=== PATIENT | male | born 1995 | race African-American/Black ===

== ENCOUNTER → 2021-01-12 | Outpatient (REF) ==
--- NOTE | 2021-01-12 09:32 | REPPI ---
INDICATION: DISABILITY DIAGNOSIS DETERMINATION COMPARISON: None. TECHNIQUE: AP, lateral, bilateral oblique views left hand. FINDINGS: Subtle irregularity at the 5th proximal interphalangeal joint region cannot be excluded and may represent old injury. The examination is otherwise normal and there is no evidence for acute fracture or dislocation. No significant degenerative changes. IMPRESSION: As above. No acute fracture or dislocation. <Electronically signed by Vazquez Ingram > 01/12/21 0970
--- NOTE | 2021-01-12 09:35 | REPPI ---
INDICATION: DISABILITY DIAGNOSIS DETERMINATION COMPARISON: None. TECHNIQUE: PA and lateral. FINDINGS: The mediastinum and cardiac silhouette are normal. The lung mac are clear and without acute consolidation, effusion, or pneumothorax. The skeletal structures are intact and normal. IMPRESSION: No acute cardiopulmonary process. <Electronically signed by Vazquez Ingram > 01/12/21 0931
== END ==
LOC: M PLAIMG 10:53
PROVIDERS: ATTEND Internal Medicine

== ENCOUNTER → 2021-02-22 | Outpatient (CLI) | payer OTHER ==
--- NOTE | 2021-02-22 16:03 | REP ---
INDICATION: PAIN IN LEFT FOOT. COMPARISON: None. TECHNIQUE: Four views. FINDINGS: The portion of distal tibia and fibula is seen is unremarkable. Talus and calcaneus are without focal lesion. Talonavicular and calcaneocuboid joints are grossly normal. Tarsal bones and their articulations were also unremarkable. Metatarsals and phalanges and their articulations show no acute finding. IMPRESSION: Negative left foot series for any acute bony finding. <Electronically signed by Giorgio Dunbar > 02/22/21 [id number]
== END ==
LOC: M WUC 15:00
PROVIDERS: ATTEND Physician Assistant
DX: M79.672 Pain in left foot (principal)